=== PATIENT | female | born 1975 | race Caucasian/White ===

== ENCOUNTER 2024-03-02 10:07 | Emergency (ER) | payer OTHER, SELFPAY ==
[2024-03-02 10:10] VITALS: BP 185/114
[2024-03-02 10:50] VITALS: BMI 30.4
[2024-03-02 10:59] LABS: % Basophils 0.5 % (0-2); % Eosinophils 1.4 % (0-6); % Immature Granulocytes 0.6 % (0-0.5); % Lymphocytes 17.7 % (20.5-51.1); % Monocytes 6.5 % (1.7-9.3); % Neutrophils 73.3 % (42.2-75.2); Absolute Basophils 0.1 10^3/uL (0-0.2); Absolute Eosinophils 0.1 10^3/uL (0-0.7); Absolute Immature Granulocytes 0.1 10^3/uL (0-0.05); Absolute Lymphocytes 1.8 10^3/uL (1.2-3.4); Absolute Monocytes 0.7 10^3/uL (0.1-0.6); Absolute Neutrophils 7.5 10^3/uL (1.4-6.5); Hematocrit 38.3 % (37.0-47.0); Hemoglobin 13.3 g/dL (12.0-16.0); Mean Corp Hgb Conc. 34.7 g/dL (33.0-37.0); Mean Corpuscular Hgb 30.1 pg (27.0-31.0); Mean Corpuscular Volume 86.7 fL (81.0-99.0); Mean Platelet Volume 10.1 fL (7.4-10.4); Nucleated Red Blood Cells % 0 %; Platelet Count 320 10^3/uL (130-400); Red Blood Cell Count 4.42 10^6/uL (4.20-5.40); Red Cell Dist. Width 12.2 % (11.5-14.5); White Blood Cell Count 10.2 10^3/uL (4.8-10.8)
[2024-03-02 11:11] LABS: HCG, Serum Qualitative Screen Negative
[2024-03-02 11:13] LABS: ALT (SGPT) < 10 U/L (0-35); AST (SGOT) 17 U/L (14-36); Albumin 4.1 g/dl (3.5-5.0); Alkaline Phosphatase 74 U/L (38-126); Blood Urea Nitrogen 13 mg/dl (7-17); Calcium 8.9 mg/dl (8.4-10.2); Carbon Dioxide 25 mmol/L (22-30); Chloride 105 mmol/L (98-107); Estimated Creatinine Clearance 106 ml/min; Glucose 116 mg/dl (70-99); Sodium 139 mmol/L (135-145); Total Bilirubin 0.5 mg/dl (0.2-1.3); Total Protein 6.9 g/dl (6.3-8.2); eGFR > 60.00
[2024-03-02 11:26] VITALS: BP 150/99
[2024-03-02] MEDS: CYKLOKAPRON 1300 MG PO (11:29)
[2024-03-02 12:13] LABS: Urine Albumin 2+ (Neg - Trace); Urine Bilirubin Negative (Negative); Urine Character Very Cloudy (Clear); Urine Color Red; Urine Glucose Negative (Negative); Urine Ketone Trace (Negative); Urine Leukocyte 1+ (Negative); Urine Nitrite Positive (Negative); Urine Occult Blood 4+ (Negative); Urine Urobilinogen Negative (Neg - 1+); Urine pH 6.5 (5.0-9.0)
[2024-03-02 12:38] LABS: Urine Red Blood Cell >100 /HPF (0-2)
[2024-03-02 12:39] LABS: Urine Bacteria Moderate (Negative)
--- NOTE | 2024-03-02 13:18 | ED.GENMED ---
History of Present Illness
General
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
Source: patient
Exam Limitations: none
Time Seen by Provider: 03/02/24 10:27
Nursing documentation reviewed up to this point in time: agreed with
History of Present Illness
History of Present Illness:
48-year-old female presenting to the emergency department today with concerns of heavy vaginal bleeding. She had 1 month of continuous bleeding that was steady but not severe which concluded 2 weeks ago. Additional bleeding starting yesterday and
patient claims that the heavy bleeding started this morning over the past hour prior to arrival where she is using a pad and a tampon every 30 minutes or so. Denies any lightheadedness chest pain shortness of breath.
Review of Systems
Review of Systems
Allergies reviewed?: Yes
All Other Systems: ROS reviewed and negative except as documented in HPI and ROS
Phy Exam
Physical Exam
Physical Exam:
GENERAL: Alert , in no apparent distress
EYE: pupils equal and reactive
NECK: Supple, no significant adenopathy.
ENT: o/p clr, mmm.
CARDIAC: Regular rate and rhythm .
LUNGS: Clear breath sounds bilaterally, no acute respiratory distress, no wheezes/rales/rhonchi
ABDOMEN: Soft, without focal tenderness, no r/g, no cvat
Pelvic: Vaginal bleeding blood is quickly filling the vaginal vault.
nd oriented, no focal neuro deficits
SKIN: Warm and dry, skin intact.
MUSCULOSKELETAL: No edema, well perfused.
PSYCH: Normal and appropriate interaction.
Course
Orders/Labs/Results
Orders:
Orders
03/02/24 10:27
Test Result ONCE
03/02/24 10:48
Type+Screen Urgent
Complete Blood Count/With Diff Urgent
Comprehensive Metabolic Panel Urgent
HCG, Serum Qualitative Screen Urgent
03/02/24 11:21
Urinalysis Reflex To Culture Urgent
Specimen Description:
Date Specimen was Collected: 03/02/24
Time Specimen was Collected: 11:18
Urine Microscopic Reflex Cult Urgent
Urine Culture Urgent
NAVEED Source: U
Specimen Description:
Date Specimen was Collected: 03/02/24
Time Specimen was Collected: 11:18
03/02/24 11:22
Tranexamic Acid [Cyklokapron] 1,300 mg PO ONCE ONE
03/02/24 11:30
US Pelvis Only (non-obstetric) Urgent
Comment:
Reason For Exam: heavy vaginal bleeding
Abnormal Lab Results
03/02/24 03/02/24
10:48 11:21
Abs Immat Gran (auto) 0.1 H 10^3/uL
(0-0.05)
Absolute Neuts (auto) 7.5 H 10^3/uL
(1.4-6.5)
Absolute Monos (auto) 0.7 H 10^3/uL
(0.1-0.6)
Immature Gran % 0.6 H %
(0-0.5)
Lymphocytes % 17.7 L %
(20.5-51.1)
Glucose 116 H mg/dl
(70-99)
Urine Ketones Trace A
(Negative)
Ur Occult Blood Reflex 4+ A
(Negative)
Urine Nitrite (Reflex) Positive A
(Negative)
Leukocyte Esterase Rfl 1+ A
(Negative)
Urine RBC >100 A /HPF
(0-2)
Urine Bacteria (Reflex) Moderate A
(Negative)
Urine Albumin (Reflex) 2+ A
(Neg - Trace)
03/02/24 10:48
03/02/24 10:48
Vital Signs
Initial and Last Documented VS:
Initial Vital Signs
Temp Pulse Resp BP Pulse Ox
99.0 F 111 18 185/114 98
03/02/24 10:10 03/02/24 10:10 03/02/24 10:10 03/02/24 10:10 03/02/24 10:10
Last Documented Vital Signs
Temp Pulse Resp BP Pulse Ox
99.0 F 100 18 150/99 99
03/02/24 10:10 03/02/24 11:26 03/02/24 11:26 03/02/24 11:26 03/02/24 11:26
MDM/Problems Addressed
MDM/Problems Addressed:
48-year-old female presenting to the emergency department today with concerns of heavy vaginal bleeding starting yesterday but worsening today. Using a pad and tampon every 30 minutes. Upon arrival mildly tachycardic but no distress no shortness
of breath or systemic symptoms. Significant bleeding on examination was given tranexamic acid which seemed to improve symptoms. Case was discussed with gynecology they recommended ultrasound and will follow closely. Ultrasound without emergent
findings patient's bleeding improving after receiving tranexamic acid. Case was again discussed with gynecology who recommends ongoing trend is a week as but otherwise close outpatient follow-up. Here the hemoglobin is 13.3 patient is generally
well-appearing vital signs stable throughout ER stay. Patient appears stable for outpatient management return precautions given.
*Critical Care Note
Total Time (30-74mins, 75-104mins- exclusive of procedures): Not Applicable
ED Attending Note
-
Portions of this chart may have been created with voice recognition software.� Occasional wrong word or��sound alike� substitutions may have occurred due to the inherent limitations of voice recognition software.
Discharge Plan
Departure
Patient Disposition: Home (Routine Discharge)
Date of Disposition: 03/02/24
Time of Disposition: 14:35
Patient with high blood pressure during this ER visit?: No
Condition: Good
Covid-19: Not Applicable
Discharge Problem:
Abnormal vaginal bleeding
Instructions: Heavy Periods (DC)
Prescriptions:
New
tranexamic acid 650 mg tablet
1,300 mg PO TID 5 Days Qty: 30 0RF
Referrals:
Yoselyn Wise DO [Active] - Follow up in 5-7 days
Bella Swanson DO [Family Provider] -
Activity Restrictions/Additional Instructions:
You came to the emergency department today with concerns of vaginal bleeding. Please take Cross's Sima acid 2 tabs 3 times daily for the next 5 days and follow-up closely with your pin puller. Return to the emergency department for any
worsening, new or concerning symptoms.
Interventions
Interventions:
*Risk Screen - Suicide Last Done: 03/02/24 10:10
*General Assessment Last Done: 03/02/24 10:10
*Neglect/Abuse Screening Last Done: 03/02/24 10:10
ED- Fall Risk Assessment Last Done: 03/02/24 10:49
*ED COVID-19 Vaccine History Last Done: 03/02/24 10:49
ED-Female Genitourinary Assessment Last Done: 03/02/24 10:49
Discharge Date and Time
Print Language: CROATIAN
[2024-03-02 14:47] VITALS: BP 135/95
== END 2024-03-02 14:48 | disposition home or self-care (01) ==
LOC: EMR 10:07
PROVIDERS: Physician Assistant; EMERGENCY PHYSICIAN Emergency Medicine; FAMILY PHYSICIAN Family Medicine
DX: N93.9 Abnormal uterine and vaginal bleeding, unspecified (principal)
CPT/HCPCS: 99284; 76856; 80053; 81003; 81015; 84703; 85025; 86850; 86900; 86901; 87086

== ENCOUNTER 2024-05-09 06:47 | Day surgery (SDC) | payer OTHER, SELFPAY ==
[2024-05-05 07:34] LABS: INR 0.98
[2024-05-05 07:41] LABS: % Basophils 0.8 % (0-2); % Eosinophils 2.7 % (0-6); % Immature Granulocytes 0.6 % (0-0.5); % Lymphocytes 19.4 % (20.5-51.1); % Monocytes 7.2 % (1.7-9.3); % Neutrophils 69.3 % (42.2-75.2); Absolute Basophils 0.1 10^3/uL (0-0.2); Absolute Eosinophils 0.2 10^3/uL (0-0.7); Absolute Immature Granulocytes 0.1 10^3/uL (0-0.05); Absolute Lymphocytes 1.7 10^3/uL (1.2-3.4); Absolute Monocytes 0.6 10^3/uL (0.1-0.6); Hematocrit 41.5 % (37.0-47.0); Hemoglobin 13.9 g/dL (12.0-16.0); Mean Corp Hgb Conc. 33.5 g/dL (33.0-37.0); Mean Corpuscular Hgb 30.1 pg (27.0-31.0); Mean Corpuscular Volume 89.8 fL (81.0-99.0); Mean Platelet Volume 10.3 fL (7.4-10.4); Nucleated Red Blood Cells % 0 %; Platelet Count 353 10^3/uL (130-400); Red Blood Cell Count 4.62 10^6/uL (4.20-5.40); Red Cell Dist. Width 11.9 % (11.5-14.5); White Blood Cell Count 8.7 10^3/uL (4.8-10.8)
[2024-05-05 07:54] LABS: Beta HCG Quantitative < 2.39 mIU/ml
[2024-05-05 07:57] LABS: Blood Urea Nitrogen 15 mg/dl (7-17); Calcium 9.4 mg/dl (8.4-10.2); Carbon Dioxide 28 mmol/L (22-30); Chloride 101 mmol/L (98-107); Glucose 109 mg/dl (70-99); Potassium 4.5 mmol/L (3.5-5.1); Sodium 140 mmol/L (135-145); eGFR > 60.00
[2024-05-09] VITALS (16 sets, daily range): BP systolic 120–149; BP diastolic 80–98; BMI 31.4
--- NOTE | 2024-05-09 09:33 | W.SUR.PREOP ---
Pre-Operative Surgical Note
-
I have examined this patient prior to the performance of the scheduled procedure.
The patient's condition is unchanged from the time of the current History and
Physical and the patient is able to undergo the scheduled procedure.
[2024-05-09] MEDS: NORMOSOL-R/PLASMALYTE-A 1000 IV ×3 (09:42→23:27)
[2024-05-09] MEDS: NEURONTIN 300 MG PO (09:55)
[2024-05-09] MEDS: TYLENOL 1000 MG PO (09:57)
[2024-05-09] MEDS: HEPARIN 5000 UNITS SC ×2 (09:58→20:04)
--- NOTE | 2024-05-09 12:09 | W.IMMPOSTOP ---
Addendum entered and electronically signed by Yoselyn Wise DO 05/09/24 21:44:
proctor 800ml clear yellow urine
Original Note:
Surgical Immed Post Op Note
-
Primary Surgeon: Yoselyn Wise DO
Installer Metal Flooring: ALEXUS Love
Pre-op Diagnosis:Menorrhagia
Post-op Diagnosis: same
Procedure Performed: [facility] left oopherectomy, exicision and fulgeration endometriosis
Anesthesia Type: general ET Dr. De La Garza
Specimen / Cultures: uterus, cervix, left ovary, right peritoneal wall endometriosis
Estimated Blood Loss: 10ml
Fluids: 1000ml IV
Proctor 80ml clear yellow urine
Complications: none
Operative Findings: normal sized uterus. Normal appearing uterus and cervix. Normal appearing right ovary. Left ovary with some superficial endometriosis implants.
Endometriosis implants noted along right pelvic peritoneal wall. Some implants close proximity to and overlying ureters bilaterally which were not treated as a result.
Counts correct times 2.
Stable to recovery.
[2024-05-09] MEDS: TORADOL 15 MG IV ×2 (13:08→18:12)
[2024-05-09 13:09] LABS: Hemoglobin 12.6 g/dL (12.0-16.0)
[2024-05-09 13:20] LABS: Blood Urea Nitrogen 14 mg/dl (7-17); Calcium 8.7 mg/dl (8.4-10.2); Carbon Dioxide 25 mmol/L (22-30); Chloride 103 mmol/L (98-107); Estimated Creatinine Clearance 103 ml/min; Glucose 153 mg/dl (70-99); Potassium 4.4 mmol/L (3.5-5.1); Sodium 138 mmol/L (135-145); eGFR > 60.00
[2024-05-09] MEDS: DILAUDID 0.5 MG IV (14:37)
--- NOTE | 2024-05-09 15:57 | PTCARENOTE ---
Report received via telephone from Felisha, PACU @ 1500. Patient transferred to room 219 with @ bedside. Pt AAOx3, VSS, Lungs CTA, HRR, Abdomen soft with 5 linear surgical sites and umbilical level, without drainage. BS X4, compression
sleeve bilat to Lower extremities in place. Pt assisted OOB to bedside commode and voided 310 of cyu. Pt assisted back to bed and instructed to order a clear liquid tray to start, then advance diet as tolerated. Pt experienced mild nausea at
times. Pt resting at present.
[2024-05-09] MEDS: COLACE 100 MG PO (20:04)
[2024-05-09] MEDS: TYLENOL 650 MG PO (20:07)
--- NOTE | 2024-05-09 20:58 | W.PN.OBG.DWH ---
Today's Communication / Plan
-
routine post-op care
Assessment/Plan
-
48yo POD#0 s/p RA-AKBAR, KIM, fulgaration of endometriosis
1. Pain control as ordered, though patient feels it is not bad enough to warrant narcotic use. continue with toradol and tylenol
2. Regular diet as tolerated
3. OOB as able
4. Monitor for VB
5. continue routine Postop care.
Subjective Data
-
feels deep pelvic pain, hurts to sit up, most comfortable lying down. Mild headache. Declines narcotic pain medication. has been OOB to void. No n/v. Ate dinner.
Objective Data
-
Laboratory Results
05/09/24 12:52
05/09/24 12:51
Vital Signs
Temp Pulse Resp BP Pulse Ox
98.2 F 107 16 134/87 93
05/09/24 15:47 05/09/24 15:47 05/09/24 15:47 05/09/24 15:47 05/09/24 14:56
Gen: nad well appearing
Abd: soft, nd, mild ttp, soft bs
INcision: c/d/i
Ext: compression devices in place
[2024-05-09] MEDS: ROXICODONE 2.5 MG PO (22:03)
--- NOTE | 2024-05-09 23:13 | PTCARENOTE ---
Addendum entered by Jacqueline Canas RN 05/09/24 23:14:
Dr. Park notified @ 2015 of HR 110.
Original Note:
Dr. Park notified of patients apical HR 110 and regular. continue present care.
[2024-05-10] MEDS: TORADOL 15 MG IV ×2 (00:33→06:36)
[2024-05-10 04:30] VITALS: BP 135/79
[2024-05-10 06:21] LABS: % Basophils 0.1 % (0-2); % Eosinophils 0.1 % (0-6); % Immature Granulocytes 0.5 % (0-0.5); % Lymphocytes 11.4 % (20.5-51.1); % Monocytes 6.2 % (1.7-9.3); % Neutrophils 81.7 % (42.2-75.2); Absolute Immature Granulocytes 0.1 10^3/uL (0-0.05); Absolute Lymphocytes 1.6 10^3/uL (1.2-3.4); Absolute Monocytes 0.9 10^3/uL (0.1-0.6); Absolute Neutrophils 11.7 10^3/uL (1.4-6.5); Hematocrit 35.1 % (37.0-47.0); Mean Corp Hgb Conc. 34.2 g/dL (33.0-37.0); Mean Corpuscular Hgb 29.8 pg (27.0-31.0); Mean Corpuscular Volume 87.1 fL (81.0-99.0); Mean Platelet Volume 10.4 fL (7.4-10.4); Nucleated Red Blood Cells % 0 %; Platelet Count 318 10^3/uL (130-400); Red Blood Cell Count 4.03 10^6/uL (4.20-5.40); White Blood Cell Count 14.3 10^3/uL (4.8-10.8)
[2024-05-10 06:58] LABS: Blood Urea Nitrogen 13 mg/dl (7-17); Carbon Dioxide 25 mmol/L (22-30); Chloride 104 mmol/L (98-107); Estimated Creatinine Clearance 103 ml/min; Potassium 4.5 mmol/L (3.5-5.1); Sodium 137 mmol/L (135-145)
--- NOTE | 2024-05-10 07:27 | W.PN.OBG.DWH ---
Today's Communication / Plan
-
Plan dc home today
Assessment/Plan
-
POD#1 s/p RA TLH Left oopherectomy fugleration /excision endometriosis
Stable
Reg diet
DC home today
Subjective Data
-
POD#1
No complaints
Shashank diet
Voiding without difficulty
feels able to go home
no bleeding
Objective Data
-
Laboratory Results
05/10/24 05:48
05/10/24 05:48
Vital Signs
Temp Pulse Resp BP Pulse Ox
97.9 F 95 16 135/79 93
05/10/24 04:30 05/10/24 04:30 05/10/24 04:30 05/10/24 04:30 05/09/24 14:56
VSS afeb
cor: regular rate
pulm: clear
abd: soft NDNT Inc cdi
no vaginal bleeding
ext: no calf pain
--- NOTE | 2024-05-10 07:51 | W.DS.TRANS ---
DC Summary - Specimen Transporter
-
Discharge Instructions:
Sleep Apnea Risk Low
Discharge Diagnosis/Procedures menorrhagia;robotic total laparoscopic
hysterectomy left oopherectomy, excision and
fulgeration of endometriosis
Diet Regular
Activity No restrictions
Driving Restrictions No driving for 1 week
Bathing Restrictions OK to Shower
Instructions:
Stand-Alone Forms:
Changes to Home Medications: No
Discharge Medications:
DC Medications w/original date entered in [facility]
methylphenidate HCl 54 mg tablet,extended release 24 hr (Concerta) 54 mg PO PRN PRN ADHD 05/02/24
acetaminophen 325 mg tablet 650 mg (2 x 325 mg) PO Q4HPRN PRN mild pain #0 tabs 05/10/24
oxycodone 5 mg tablet 2.5 mg (1/2 x 5 mg) PO Q4HPRN PRN moderate pain #0 tabs 05/10/24
oxycodone 5 mg tablet 5 mg PO Q4HPRN PRN severe pain when tolerating PO #8 tabs 05/10/24
Home Medication Changes
Pending Results: Yes
Additional Pending Results:
surgical path
Total time spent discharging patient (in min): 30
[2024-05-10] MEDS: FEOSOL 325 MG PO (08:03)
[2024-05-10] MEDS: NORMOSOL-R/PLASMALYTE-A IV (08:04)
[2024-05-10] MEDS: COLACE 100 MG PO (08:04)
--- NOTE | 2024-05-10 10:25 | CM ---
Pt admitted - POD#1 s/p RA TLH Left oopherectomy fugleration /excision endometriosis
Met with pt at bedside
Pt reports she lives with her and daughter in a 2 story home. 3 steps to enter, 12 steps to 2nd fl
Employed [employer], drives, independent
DME - none
SNF/HH - denies past hx
Has ride home at discharge
PCP - Dr Benito
Pharm - [facility]
Plan - anticipate home no needs
[2024-05-10 10:27] VITALS: BP 127/81
== END 2024-05-10 10:47 | disposition home or self-care (01) ==
LOC: SDS 06:47
PROVIDERS: ATTENDING PHYSICIAN Obstetrics & Gynecology; FAMILY PHYSICIAN Family Medicine
DX: N92.0 Excessive and frequent menstruation with regular cycle (principal); N80.00 Endometriosis of the uterus, unspecified; N72 Inflammatory disease of cervix uteri; D25.9 Leiomyoma of uterus, unspecified; N80.30 Endometriosis of pelvic peritoneum, unspecified
CPT/HCPCS: 58571; 58662; 88305; 88307; 36415; 80048; 80051; 82565; 84520; 84702; 85014; 85018; 85025; 85610; 86850; 86900; 86901; 93005